=== PATIENT | male | born 1965 | race Caucasian/White ===

== ENCOUNTER → 2016-09-29 | Outpatient (CLI) | payer BC ==
[~2016-09-29] MED LIST: NXM/40 PO
[2016-09-29 10:39] LABS: BASO % 1.5 %; BASO ABS # 0.06 K/uL (0-0.2); COMPLETE YES; EOS % 1.5 %; HEMATOCRIT 44.1 % (42-52); LYMPH % 38.7 %; MEAN CELL VOLUME 89.5 fL (80-100); MEAN CORPUSCULAR HEMOGLOBIN 30.8 pg (25-34); MEAN CORPUSCULAR HGB CONC 34.5 g/dl (32-36); MEAN PLATELET VOLUME 9.9 fL (7.4-10.4); MONO % 9.7 %; NEUT % 48.6 %; PLATELET COUNT 242 K/uL (130-400); RED BLOOD COUNT 4.93 M/uL (4.7-6.1); WHITE BLOOD COUNT 4.13 K/uL (4.8-10.8)
[2016-09-29 10:59] LABS: ALT/SGPT 40 U/L (12-78); AST/SGOT 25 U/L (15-37); BLOOD UREA NITROGEN 11 mg/dl (7-18); BUN/CREATININE RATIO 10.5 (10-20); CALCIUM 9.6 mg/dl (8.5-10.1); CARBON DIOXIDE 27 mmol/L (21-32); CHLORIDE 106 mmol/L (98-107); CHOLESTEROL 257 mg/dl (0-200); GLUCOSE 97 mg/dl (70-99); POTASSIUM 3.9 mmol/L (3.5-5.1); SODIUM 138 mmol/L (136-145); TRIGLYCERIDES 137 mg/dl (0-150); VERY LOW DENSITY LIPOPROT CALC 27 mg/dl
[2016-09-29 11:02] LABS: CHOLESTEROL/HDL RATIO 4.7; HDL CHOLESTEROL 55 mg/dl; LDL CHOLESTEROL CALCULATED 175 mg/dl
== END | disposition home or self-care (01) ==
LOC: C.LAB1850 09:15
DX: E78.5 Hyperlipidemia, unspecified (principal); N52.9 Male erectile dysfunction, unspecified; R51 Headache

== ENCOUNTER 2018-08-30 07:32 | Observation (INO) ==
--- NOTE | 2018-08-27 09:00 | PAT Medication Instructions ---
Medication Instructions Date of Service August 27, 2018 Home Medications esomeprazole magnesium [Nexium] 20 mg PO DAILY PRN ibuprofen [Advil] 600 mg PO QID PRN ASK your surgeon for instructions ibuprofen [Advil] 600 mg PO QID PRN Take morning of surgery With a small sip of water, OTHERWISE NOTHING TO EAT OR DRINK AFTER MIDNIGHT: esomeprazole magnesium [Nexium] 20 mg PO DAILY PRN (if needed) Other Notes If you have any questions please call us at [phone] or [phone] or [phone] or [phone]
--- NOTE | 2018-08-27 09:21 | Anesthesiology Consultation ---
Date of Service August 27, 2018 Assessment & Plan (1) Encounter for pre-operative examination: - No previous anesthesia records available. Chart Review Chart Review: Acceptable Risk for Surgery and Patient seen in Pre Admission Test ing Consults Requested none Teaching & Discussion Pre-Anesthesia Teaching/Discussion Notes: Instructed NPO after midnight before surgery, except medications with 15 cc of water. Medication instructions provided according to the PAT guidelines. History Surgery Operation Date: 08/30/18 08:30 Proposed Procedures p Laparoscopic Cholecystectomy with Cholangiogram - Alfonso Adams MD, FACS Height/Weight Height: 5 ft 6 in Weight: 78.8 kg Allergies Allergy/AdvReac Type Severity Reaction Status Date / Time No Known Allergies Allergy Verified 08/25/18 14:00 Medications Home Medications Medication Instructions Recorded Confirmed Last Taken esomeprazole magnesium [Nexium] 20 mg PO DAILY PRN 08/25/18 08/25/18 Unknown ibuprofen [Advil] 600 mg PO QID PRN 08/25/18 08/25/18 Unknown Past Medical History Medical History Acid reflux Migraine HX Exercise / Class Metabolic Activity II 4-5 Yardwork/Stairs/Walk up hill (Golf, Walks alot, Able to climb FOS, denies CP or SOB.) Past Surgical History Surgical History H/O knee surgery RIGHT ACL RECON History of esophagogastroduodenoscopy (EGD) History of herniorrhaphy Bilateral inguinal Past Anesthesia History No Hx of Anesthesia Complications and No Family Hx of Anesthesia Complications History of PONV No Hx of PONV and No Hx of Motion Sickness Social History Smoking Status: Never smoker Do You Dip or Chew Tobacco: No Hx Alcohol Use: Yes Alcohol type: beer, wine and hard liquor alcohol intake frequency: a few times a week Hx Substance Use: No Review of Systems Patient denies chest pain, shortness of breath, dyspnea on exertion,cough, wheezing, palpitations. +Joint Pain (Knee) +Acid Reflux (Controlled with occasional Nexium) Physical Exam Vital Signs BP: 132/86 P: 73 R: 16 T: 98.1 SPO2: 97% on Ra ENMT Thyromental Distance: < 3.5 Finger Breadths (3) Mallampati Class: I Neck normal visual inspection and trachea midline; neck extension not limited Respiratory normal respiratory effort Auscultation: lungs clear to auscultation bilaterally Cardiovascular Rate/Rhythm: regular rate and regular rhythm Heart Sounds: no murmur Neurologic moves all extremities Psychiatric Orientation: alert and oriented x 3 Testing Laboratory Results Laboratory Tests 07/22/18 07/22/18 08:20 08:20 WBC 4.86 Hgb 15.4 Hct 44.4 Plt Count 216 Sodium 142 Potassium 4.1 Chloride 110 H Carbon Dioxide 25 BUN 16 Creatinine 1.03 Glucose 83 Urine from 07/22 is NEGATIVE Electrocardiogram Date: 08/27/18 Findings: + NSR @ (70) and + no change from (09/25/11)
[~2018-08-30 07:32] MED LIST changes: +DEXAMETHASONE SOD INJ 4 MG/ML VIAL ONE; +GLYCOPYRROLATE 0.2 MG/ML VIAL ONE; +LIDOCAINE HCL 2% 2 ML VIAL/AMP(20MG/ML) INFIL ONE; +LR 15ML/HR IV SCH; +MIDAZOLAM HCL 1 MG/ML 2ML VIAL ONE; +NEOSTIGMINE METHYLSULFATE 5 MG/5 ML SYR ONE; -NXM/40 PO; +ONDANSETRON INJ 2 MG/ML 2 ML VIAL ONE; +PROPOFOL IV EMULSION 10 MG/ML 20 ML VIAL IV ONE; +cefUROXime 1,500 MG in DEXTROSE 5% 100 ML IV SCH; +fentaNYL citrate 100 MCG/2 ML VIAL ONE
--- NOTE | 2018-08-30 08:28 | History & Physical Bridge Note ---
Date of Service August 30, 2018 History & Physical Bridge Note I have examined the patient, reviewed the History & Physical and in the interval since the performance of the History & Physical I have noted the following changes of clinical significance: no changes noted
[2018-08-30] MEDS ORDERED: ePHEDrine sulfate 50 MG/ML AMP IV PRN (08:29)
[2018-08-30] MEDS ORDERED: PROMETHAZINE HCL 12.5 MG in SODIUM CHLORIDE 0.9% 50 ML IV PRN ×2 (08:29→10:16)
[2018-08-30] MEDS ORDERED: ATROPINE SULFATE 0.1 MG/ML 10ML SYR IV PRN (08:29)
[2018-08-30] MEDS ORDERED: ONDANSETRON INJ 2 MG/ML 2 ML VIAL IV PRN ×2 (08:29→10:16)
[2018-08-30] MEDS ORDERED: HYDROmorphone INJ 1 MG/ML SYRINGE IV PRN ×2 (08:29→10:16)
[2018-08-30] MEDS ORDERED: CONRAY 60% 50 ML VIAL ONE (08:47)
[2018-08-30] MEDS ORDERED: BUPIVACAINE 0.5 % 5 MG/1 ML MPF 30ML VIAL ONE (08:47)
[2018-08-30] MEDS ORDERED: fentaNYL citrate 100 MCG/2 ML VIAL ONE (09:14)
[2018-08-30] MEDS ORDERED: ROCURONIUM BROMIDE 10 MG/ML 5 ML VIAL ONE (09:19)
[2018-08-30] MEDS ORDERED: HYDROmorphone INJ 0.5 MG/0.5 ML SYR IV PRN (10:16)
[2018-08-30] MEDS ORDERED: IBUPROFEN 600 MG TAB PO PRN (10:16)
[2018-08-30] MEDS ORDERED: PROMETHAZINE HCL 25 MG in SODIUM CHLORIDE 0.9% 50 ML IV PRN (10:16)
[2018-08-30] MEDS ORDERED: ACETAMINOPHEN 1,000 MG/100 ML VIAL IV ONE (10:16)
[2018-08-30] MEDS ORDERED: HYDROCODONE/ACETAMOPHEN 5/325MG TAB PO PRN (10:16)
--- NOTE | 2018-08-30 10:16 | Operative Report ---
Post Operative Report Pre & Post Diagnosis Operation Date: 08/30/18 08:30 Pre-Op Diagnosis: Biliary Colic Post-Op Diagnosis: Chronic cholecystitis adhesions Procedure Operation Date: 08/30/18 08:30 Actual Procedures p Laparoscopic Cholecystectomy (Not Applicable) - Alfonso Adams MD, FACS Surgeon Alfonso Adams MD, FACS Cosmetic Chemist nurses Estimated Blood Loss 10 Findings Consistent with Post-Op Diagnosis Specimens gallbladder Description of Procedure see dictation I attest to the content of the Intraoperative Record and any orders documented therein. Any exceptions are noted below.
[2018-08-30] MEDS ORDERED: ACETAMINOPHEN 1000 MG/100 ML IV IV ONE (10:26)
[2018-08-30] MEDS ORDERED: SODIUM CHLORIDE 0.9% 1000ML 1,000 ML IV SCH (10:30)
[2018-08-30] MEDS: fentaNYL citrate 100 MCG/2 ML VIAL IV PRN ×2 (10:47→10:53)
--- NOTE | 2018-08-30 11:13 | Operative Report ---
DATE OF OPERATION: 08/30/2018 NAME OF OPERATION: Laparoscopic cholecystectomy with lysis of adhesions to the colon and omentum. STAFF SURGEON: Alfonso Adams MD ANESTHESIA: General. DESCRIPTION OF PROCEDURE: The patient was brought in the operating room and placed on the operating table in supine position. His abdomen was prepped and draped in usual fashion. Pneumatic stockings, orogastric tube were placed. 0.5% plain Marcaine was used to anesthetize all incisions. Incision was made above the umbilicus, carrying dissection down to the fascia, placing a Veress needle producing pneumoperitoneum. An 11 mm port was placed this level. Then, under visualization, three 5 mm ports were placed, 1 cephalad and 2 laterally. Gallbladder was grasped and retracted. There were relatively dense adhesions of the colon and omentum to the gallbladder. These were taken down with some difficulty, the dissection was carried out the faisal hepatis, identifying severe scar tissue consistent with chronic cholecystitis. I was able to identify the cystic duct. I was unable to pass the catheter to perform cholangiogram. The duct was clipped and transected. The cystic artery identified, clipped and transected and the gallbladder dissected away from the liver bed in the usual fashion, placed in an Endobag. After appropriate hemostasis and irrigation, the Endobag was removed through the umbilical site. All ports were removed. The fascia at the umbilicus closed using interrupted 0 Vicryl suture. Skin at the umbilicus closed using interrupted 5-0 Prolene suture and then the other sites closed using subcuticular 4-0 Monocryl with Steri-Strips. The patient was transferred to the recovery room in stable condition. I attest to the content of the Intraoperative Record and any orders documented therein. Any exception s are noted below.
--- NOTE | 2018-08-30 11:18 | Anesthesiology Progress Note ---
Date of Service August 30, 2018 Anesthesia Post Procedure Vital Signs Vital Signs: Temp Pulse Resp BP Pulse Ox 08/30/18 11:05 36.3 C L 60 15 115/76 96 08/30/18 10:55 60 15 107/78 96 08/30/18 10:45 61 17 132/89 97 08/30/18 10:35 62 18 140/90 100 08/30/18 10:25 36.3 C L 69 18 142/95 H 100 08/30/18 07:51 36.8 C 65 18 134/90 98 Pain Intensity Abdomen: Pain Intensity: 0 Transfer of Care Handoff Completed per policy Notes Mental Status: alert / awake / arousable and participated in evaluation Patient Amnestic to Procedure: Yes Nausea / Vomiting: adequately controlled Pain: adequately controlled Airway Patency, RR, SpO2: stable & adequate BP & HR: stable & adequate Hydration State: stable & adequate Anesthetic Complications: no major complications apparent and Pt Satisfied with anesthetic care
[2018-08-30] MEDS: HYDROCODONE/ACETAMOPHEN 5/325MG TAB PO PRN ×2 (15:23→21:57)
[2018-08-30] MEDS: DOCUSATE SODIUM/SENNA 50/8.6MG TAB PO SCH (20:38)
[2018-08-31 05:41] LABS: Basophils # (auto) 0.01 K/uL (0-0.2); Basophils % (auto) 0.1 %; Hematocrit (blood only) 40.7 % (42-52); Immature Granulocytes # (auto) 0.03 K/uL (0.00-0.02); Immature Granulocytes % (auto) 0.3 %; Lymphocytes # (auto) 1.48 K/uL (1.2-3.4); Lymphocytes % (auto) 12.6 %; Mean Corpuscular Hgb Conc 34.4 g/dL (32-36); Mean Corpuscular Volume 89.6 fL (80-100); Mean Platelet Volume 9.8 fL (7.4-10.4); Monocytes # (auto) 0.98 K/uL (0.11-0.59); Monocytes % (auto) 8.4 %; Neutrophils # (auto) 9.22 K/uL (1.4-6.5); Neutrophils % (auto) 78.6 %; Platelet Count 191 K/uL (130-400); RDW Standard Deviation 42.6 fL (36.4-46.3); Red Blood Count 4.54 M/uL (4.7-6.1); White Blood Count 11.72 K/uL (4.8-10.8)
[2018-08-31 06:18] LABS: Alanine Aminotransferase 38 U/L (12-78); Albumin Level 3.3 gm/dl (3.4-5.0); Aspartate Aminotransferase 23 U/L (15-37); BUN Creatinine Ratio 14.3 (10-20); Bilirubin Direct < 0.1 mg/dl (0-0.2); Blood Urea Nitrogen 14 mg/dl (7-18); Calcium 8.1 mg/dl (8.5-10.1); Carbon Dioxide 25 mmol/L (21-32); Chloride 108 mmol/L (98-107); Creatinine Clr Calc Pharmacy 86.8 ml/min; Est GFR (African American) 101.3; Est GFR (Non-African American) 87.4; Glucose 146 mg/dl (70-99); Sodium 140 mmol/L (136-145)
[2018-08-31 06:21] LABS: Alkaline Phosphatase 40 U/L (45-117); Bilirubin,Total 0.5 mg/dl (0.2-1); Globulin 3.4 gm/dl (2.5-4.0); Total Protein 6.7 gm/dl (6.4-8.2)
--- NOTE | 2018-08-31 07:18 | Discharge Summary ---
PRINCIPAL DIAGNOSIS: Chronic cholecystitis. PROCEDURES: The patient underwent laparoscopic cholecystectomy with lysis of adhesions. STAFF SURGEON: Alfonso Adams MD HISTORY OF PRESENT ILLNESS AND HOSPITAL COURSE: The patient is a 52-year-old male who had been having symptoms of what appeared to be biliary colic, was brought into the hospital for elective cholecystectomy. Surprisingly, he had very dense adhesions of the colon and omentum to the gallbladder consistent with chronic cholecystitis. He did tolerate the laparoscopic cholecystectomy well and has done well overnight and is felt stable for discharge home today to be followed in the surgical clinic next week.
--- NOTE | 2018-08-31 08:00 | Anesthesiology Progress Note ---
Date of Service August 31, 2018 Anesthesia Post Procedure Vital Signs Vital Signs: Temp Pulse Resp BP Pulse Ox 08/31/18 07:46 36.5 C 71 16 128/85 97 08/31/18 07:00 36.5 C 71 16 128/85 97 08/31/18 03:25 36.5 C 60 16 109/69 97 08/30/18 23:00 36.6 C 81 16 107/66 96 08/30/18 19:35 36.5 C 81 16 129/81 96 08/30/18 14:22 70 15 131/82 98 08/30/18 13:17 78 15 127/74 97 08/30/18 12:20 57 L 15 114/72 98 08/30/18 11:46 36.4 C L 57 L 18 124/75 98 08/30/18 11:20 36.4 C L 58 L 14 114/72 98 08/30/18 11:05 36.3 C L 60 15 115/76 96 08/30/18 10:55 60 15 107/78 96 08/30/18 10:45 61 17 132/89 97 08/30/18 10:35 62 18 140/90 100 08/30/18 10:25 36.3 C L 69 18 142/95 H 100 Pain Intensity Abdomen: Pain Intensity: 3 Notes Mental Status: alert / awake / arousable and participated in evaluation Patient Amnestic to Procedure: Yes Nausea / Vomiting: adequately controlled Pain: adequately controlled Airway Patency, RR, SpO2: stable & adequate BP & HR: stable & adequate Hydration State: stable & adequate Anesthetic Complications: no major complications apparent and Pt Satisfied with anesthetic care
[2018-08-31] MEDS ORDERED: CIPROFLOXACIN 500 MG TAB PO SCH (09:00)
[2018-08-31] MEDS: DOCUSATE SODIUM/SENNA 50/8.6MG TAB PO SCH (09:08)
== END 2018-08-31 09:35 | disposition home or self-care (01) ==
LOC: 3N 07:32 → ASU 07:32

== ENCOUNTER 2019-04-08 09:55 | Observation (INO) ==
[2019-04-08 10:46] LABS: Basophils # (auto) 0.03 K/uL (0-0.2); Basophils % (auto) 0.3 %; Eosinophils # (auto) 0.07 K/uL (0-0.5); Eosinophils % (auto) 0.7 %; Hematocrit (blood only) 42.2 % (42-52); Hemoglobin 14.3 g/dL (14.0-18.0); Immature Granulocytes # (auto) 0.01 K/uL (0.00-0.02); Immature Granulocytes % (auto) 0.1 %; Lymphocytes # (auto) 1.43 K/uL (1.2-3.4); Lymphocytes % (auto) 14.4 %; Mean Corpuscular Hemoglobin 31.4 pg (25-34); Mean Corpuscular Hgb Conc 33.9 g/dL (32-36); Mean Corpuscular Volume 92.5 fL (80-100); Mean Platelet Volume 9.9 fL (7.4-10.4); Monocytes # (auto) 0.91 K/uL (0.11-0.59); Monocytes % (auto) 9.1 %; Neutrophils # (auto) 7.51 K/uL (1.4-6.5); Neutrophils % (auto) 75.4 %; Platelet Count 215 K/uL (130-400); RDW Coefficient of Variation 13.5 % (11.5-14.5); RDW Standard Deviation 45.6 fL (36.4-46.3); Red Blood Count 4.56 M/uL (4.7-6.1); White Blood Count 9.96 K/uL (4.8-10.8)
[2019-04-08 11:16] LABS: Alanine Aminotransferase 23 U/L (12-78); Albumin Level 3.9 gm/dl (3.4-5.0); Aspartate Aminotransferase 14 U/L (15-37); BUN Creatinine Ratio 9.5 (10-20); Blood Urea Nitrogen 10 mg/dl (7-18); Calcium 9.3 mg/dl (8.5-10.1); Carbon Dioxide 26 mmol/L (21-32); Chloride 107 mmol/L (98-107); Est GFR (African American) 91.6; Glucose 96 mg/dl (70-99); Potassium 3.9 mmol/L (3.5-5.1); Sodium 138 mmol/L (136-145)
[2019-04-08 11:19] LABS: Albumin Globulin Ratio 0.8 (0.9-2); Alkaline Phosphatase 62 U/L (45-117); Bilirubin,Total 1.4 mg/dl (0.2-1); Globulin 4.8 gm/dl (2.5-4.0); Total Protein 8.7 gm/dl (6.4-8.2)
--- NOTE | 2019-04-08 12:01 | Emergency Department Note ---
History of Present Illness General Chief complaint: Skin Problem Stated complaint: PERIANAL /PERIRECTAL ABSCESS Time Seen by Provider: 04/08/19 11:37 History of Present Illness Maximum Pain Intensity: 8 Patient is a 53-year-old male who presents the emergency department accompanied by his fiance for evaluation of a perirectal abscess that he was diagnosed with 2 days ago. Patient relates that he traveled to [place] 8 days ago. He had had some minor rectal discomfort prior to leaving, stating that he could feel a small lump in the area, but it was not particularly problematic. His symptoms worsened while he was away. 48 hours ago he was seen in an emergency department in [place]. He had a CT scan which diagnosed a perirectal abscess. He received IV Zosyn in the emergency department. Surgery was consulted and wanted to proceed with I&D however the patient declined this as he did not want to have surgery while he was away from home. They placed the patient on Augmentin and he returned here. He continues to note increasing right rectal pain radiating into the buttock. He feels fatigued, has been hot and had chills but has not taken his temperature. He is able to move his bowels. He denies any prior history of symptoms similar to this. He has not been taking anything for pain which he currently rates an 8/10. Home Medications Home Medications Medication Instructions Recorded Confirmed Type esomeprazole magnesium [Nexium] 20 mg PO DAILY PRN 08/25/18 04/08/19 History ibuprofen [Advil] 600 mg PO QID PRN 08/25/18 04/08/19 History multivitamin 1 tab PO DAILY 09/14/18 04/08/19 History omega-3 fatty acids 1,000 mg 1,000 mg PO DAILY 09/14/18 04/08/19 History capsule diclofenac potassium 50 mg tablet 50 mg PO PRN #60 tab 09/16/18 04/08/19 History naratriptan 2.5 mg tablet 2.5 mg PO .COMPLEX PRN 30 Days #9 03/15/19 04/08/19 Rx tab Allergies Allergy/AdvReac Type Severity Reaction Status Date / Time No Known Allergies Allergy Verified 04/08/19 11:30 Past Med/Surg History Medical History Acid reflux (Chronic) Migraine (Chronic) HX Surgical History H/O knee surgery RIGHT ACL RECON History of esophagogastroduodenoscopy (EGD) History of herniorrhaphy Bilateral inguinal S/P laparoscopic cholecystectomy (08/30/18) Laparoscopic cholecystectomy with lysis of adhesions to the colon and omentum 08/30/18 Dr. Adams. 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 Current Living Situation: Significant Other Feels Safe at Home: Yes Smoking Status: Never smoker Second Hand Exposure: No ; Hx Alcohol Use: Yes Alcohol type: beer, wine and hard liquor Hx Substance Use: No Review of Systems A total of 10 systems reviewed and were otherwise negative Physical Exam Vital Signs Vital Signs - 24 hr 04/08/19 10:04 Temperature 36.7 C Temperature Source Oral Pulse Rate 100 H Respiratory Rate 20 Blood Pressure 142/97 H Blood Pressure Mean 112 Pulse Oximetry 99 Oxygen Delivery Method Room Air Sepsis Recent Fever Within 48 Hours No Sepsis New/Unexplained Change in Mental Status No Sepsis Action Taken by Nursing No Action Required CONSTITUTIONAL: Patient is an uncomfortable appearing 53-year-old male who is awake and alert and ambulatory in the exam room. HEENT: Normocephalic, atraumatic. Pupils equal, round, reactive to light and accommodation. EOMs intact without nystagmus. Sclera are anicteric. Tympanic membranes intact, with normal landmarks. External canals are clear. Oral and nasopharynx are clear. Mucous membranes are moist. CARDIOVASCULAR: Regular rate and rhythm, with normal S1 and S2, no murmur or gallop or rub is heard. No carotid bruits auscultated. No JVD. Peripheral pulses easily palpable. RESPIRATORY: Breath sounds equal and clear to auscultation without wheezes, rales, or rhonchi heard. Full and equal chest expansion without accessory muscle use or retractions. ABDOMEN: Well-healed surgical scars are noted. Abdomen is soft, nontender, mildly tender in the suprapubic region without guarding or rebound. Digital rectal exam was not performed due to the stated complaint. INTEGUMENTARY: Examination of the rectal/buttock area note marked erythema, increased warmth and induration in the right perirectal area extending onto the buttock. It is significantly tender to palpation without obvious fluctuance. No pointing. INTEGUMENTARY: No lesions or rash, normal skin turgor. LYMPH: No lymphadenopathy. Course Course The patient was seen and assessed as above. He presents to the emergency department for evaluation of rectal and buttock pain after being diagnosed with a perirectal/perianal abscess 48 hours ago while traveling in [place]. He has had persistent symptoms. IV lock was initiated. Laboratory studies were collected. Patient was made n.p.o. CBC with differential, CMP were ordered. CT scan of the abdomen and pelvis with IV contrast was obtained. The patient was medicated with morphine 6 mg and Zofran 4 mg IV for discomfort and given Zosyn 4.5 mg IV. Laboratory studies noted a normal white count at 9900, left shift noted without bandemia. Electrolytes and renal functions are normal. No significant abnormalities regarding transaminases. CT scan of the pelvis with IV contrast confirmed a 3.8 x 2.8 x 2 cm perianal abscess with associated inflammation. No other acute findings noted. Laboratory and diagnostic imaging studies were reviewed with the patient and discussed with attending physician. The patient was feeling improved with the IV morphine. General surgery was consulted. Patient was discussed with Alicia Santana PA-C. He was evaluated in the emergency department by the surgical team and they will plan to take him to the OR this afternoon for definitive care. Please refer to surgical consult for more information. Administered Medications Ioversol (Optiray 320 100ml) 94 ml IV ONCE PRN PRN Reason: Interaction Checking Stop: 04/12/19 12:06 Last Admin: 04/08/19 12:08 Dose: 94 ml Documented by: [id number] Morphine Sulfate (Morphine Sulfate) 4 mg IV Q1H PRN PRN Reason: Pain Stop: 04/22/19 12:04 Last Admin: 04/08/19 13:59 Dose: 4 mg Documented by: [id number] Discontinued Medications Piperacillin Sod/Tazobactam Sod (Zosyn) 4.5 gm in 120 mls @ 240 mls/hr IV NOW ONE Stop: 04/08/19 12:34 Last Infusion: 04/08/19 12:55 Dose: 0 mls/hr Documented by: [id number] Admin: 04/08/19 12:21 Dose: 240 mls/hr Documented by: [id number] Morphine Sulfate (Morphine Sulfate) 6 mg IV NOW STA Stop: 04/08/19 12:06 Last Admin: 04/08/19 12:21 Dose: 6 mg Documented by: [id number] Ondansetron HCl (Zofran) 4 mg IV NOW STA Stop: 04/08/19 12:06 Last Admin: 04/08/19 12:21 Dose: 4 mg Documented by: [id number] Medical Decision Making Differential Diagnosis Differential diagnoses entertained included perirectal versus perianal abscess, fistula, rectal fissure, cellulitis, hemorrhoid, mass or malignancy, fecal impaction, among others. Medical Records Attestation: I reviewed the patient's medical records. Home Medications Current Medication List: was personally reviewed by me Laboratory Data Attestation: I reviewed the patient's lab results. Result diagrams: 04/08/19 10:35 04/08/19 10:35 Lab Results 04/08/19 04/08/19 Range/Units 10:35 10:35 WBC 9.96 (4.8-10.8) K/uL RBC 4.56 L (4.7-6.1) M/uL Hgb 14.3 (14.0-18.0) g/dL Hct 42.2 (42-52) % MCV 92.5 (80-100) fL MCH 31.4 (25-34) pg MCHC 33.9 (32-36) g/dL RDW Std Deviation 45.6 (36.4-46.3) fL RDW Coeff of [place] 13.5 (11.5-14.5) % Plt Count 215 (130-400) K/uL MPV 9.9 (7.4-10.4) fL Immature Gran % (Auto) 0.1 % Neut % (Auto) 75.4 % Lymph % (Auto) 14.4 % [place] % (Auto) 9.1 % Eos % (Auto) 0.7 % Baso % (Auto) 0.3 % Immature Gran # (Auto) 0.01 (0.00-0.02) K/uL Neut # (Auto) 7.51 H (1.4-6.5) K/uL Lymph # (Auto) 1.43 (1.2-3.4) K/uL [place] # (Auto) 0.91 H (0.11-0.59) K/uL Eos # (Auto) 0.07 (0-0.5) K/uL Baso # (Auto) 0.03 (0-0.2) K/uL Sodium 138 (136-145) mmol/L Potassium 3.9 (3.5-5.1) mmol/L Chloride 107 (98-107) mmol/L Carbon Dioxide 26 (21-32) mmol/L Anion Gap 5.0 (3-11) BUN 10 (7-18) mg/dl Creatinine 1.08 (0.6-1.4) mg/dl Est Cr Clr Drug Dosing Not Reportable Est GFR ( Amer) 91.6 Est GFR (Non-Af Amer) 79.0 BUN/Creatinine Ratio 9.5 L (10-20) Glucose 96 (70-99) mg/dl Calcium 9.3 (8.5-10.1) mg/dl Total Bilirubin 1.4 H (0.2-1) mg/dl AST 14 L (15-37) U/L ALT 23 (12-78) U/L Alkaline Phosphatase 62 (45-117) U/L Total Protein 8.7 H (6.4-8.2) gm/dl Albumin 3.9 (3.4-5.0) gm/dl Globulin 4.8 H (2.5-4.0) gm/dl Albumin/Globulin Ratio 0.8 L (0.9-2) Imaging Data Attestation: I personally reviewed and interpreted this imaging study as follows: Radiologist's Impression: CT pelvis w/IV con only CLINICAL HISTORY: Evaluate perirectal abscess. COMPARISON STUDY: CT of the abdomen and pelvis May 12, 2006. TECHNIQUE: Axial images of the pelvis were obtained following intravenous inje ction of 94 cc Optiray 320 IV. Sagittal and coronal reconstructions were viewed. Automated exposure control was utilized for the study. A dose lowering technique was utilized adhering to the principles of ALARA. FINDINGS: Note is made of a 3.8 x 2.8 x 2 cm rim-enhancing right perianal fluid collection within the ischioanal fossa located at the 8:00 position. This extends toward the medial inferior wall of the right buttock. Moderate adjacent inflammation is noted. No additional fluid collections are present. Sensitivity for detection of underlying fistula is suboptimal given CT technique. Caliber and wall thickness of visualized small and large bowel are normal. There is no pelvic lymphadenopathy. There is no soft tissue gas. IMPRESSION: 3.8 x 2.8 x 2 cm right perianal abscess within the ischioanal fossa with moderate associated inflammation. Blood Pressure Blood Pressure Findings: Elevated blood pressure Blood Pressure Disposition: elevated BP felt to be situational MDM Narrative See ED Course. Impression & Plan Perianal abscess Discharge Plan Visit Data Chief Complaint: Skin Problem Stated Complaint: PERIANAL /PERIRECTAL ABSCESS ED Provider: Vanda Reyes ED Midlevel Provider: Carson Delarosa Discharge Problem: Perianal abscess Patient Disposition: Being Evaluated by Surgeon Forms Stand Alone Forms: [facility] [employer] Prescriptions Prescriptions: No Action diclofenac potassium 50 mg tablet 50 mg PO PRN Qty: 60 RF: 0 naratriptan 2.5 mg tablet 2.5 mg PO .COMPLEX PRN (Reason: migraine headache) 30 Days Qty: 9 RF: 5 omega-3 fatty acids [Fish Oil Concentrate] 1,000 mg capsule 1,000 mg PO DAILY RF: 0 multivitamin [Multiple Vitamins] tablet 1 tab PO DAILY RF: 0 ibuprofen [Advil] 200 mg Tablet 600 mg PO QID PRN (Reason: Pain) RF: 0 esomeprazole magnesium [Nexium] 20 mg Capsule,Delayed Release(Dr/Ec) 20 mg PO DAILY PRN (Reason: Acid Reflux) RF: 0 Referrals Referrals: Alfonso Mohr Jr, DO [Primary Care Provider] -
[2019-04-08] MEDS ORDERED: MoRPHine SULFATE 4 MG/ML 1 ML CARP\\VIAL IV PRN (12:05)
[2019-04-08] MEDS ORDERED: PIPERACILLIN/TAZOBACTAM 4.5 GM/120 ML BAG IV ONE (12:05)
[2019-04-08] MEDS ORDERED: ONDANSETRON INJ 2 MG/ML 2 ML VIAL IV STA (12:05)
[2019-04-08] MEDS ORDERED: MoRPHine SULFATE 10 MG/ML CARP/VIAL IV STA (12:05)
[2019-04-08] MEDS ORDERED: PIPERACILL/TAZOBAC CONSULT ACTIVE PRN ×2 (12:05→17:46)
[2019-04-08] MEDS ORDERED: IOVERSOL 100ml IV PRN (12:07)
--- NOTE | 2019-04-08 12:22 | CT Scan Report ---
CT pelvis w/IV con only CLINICAL HISTORY: Evaluate perirectal abscess. COMPARISON STUDY: CT of the abdomen and pelvis May 12, 2006. TECHNIQUE: Axial images of the pelvis were obtained following intravenous injection of 94 cc Optiray 320 IV. Sagittal and coronal reconstructions were viewed. Automated exposure control was utilized for the study. A dose lowering technique was utilized adhering to the principles of ALARA. FINDINGS: Note is made of a 3.8 x 2.8 x 2 cm rim-enhancing right perianal fluid collection within the ischioanal fossa located at the 8:00 position. This extends toward the medial inferior wall of the r ight buttock. Moderate adjacent inflammation is noted. No additional fluid collections are present. S ensitivity for detection of underlying fistula is suboptimal given CT technique. Caliber and wall thi ckness of visualized small and large bowel are normal. There is no pelvic lymphadenopathy. There is no soft tissue gas. IMPRESSION: 3.8 x 2.8 x 2 cm right perianal abscess within the ischioanal fossa with moderate associ ated inflammation. ACT 112: Negative or not required by law. Electronically signed by: Hernando Mcknight M.D. 04/08/2019 12:20 PM
--- NOTE | 2019-04-08 13:51 | History & Physical Report ---
Date of Service April 08, 2019 Assessment & Plan (1) Perianal abscess: 53 year-old male with 8 day history of perianal pain. Had CT scan in [place] which showed perianal abscess and recommended to undergo incision and drainage at the time but deferred . Presents today with increasing pain. Some chills and sweats at home. Pain not well controlled. NO prior history of perianal/perirectal abscess. Recent colonoscopy Oct 2018 unremarkable. Examination shows moderate cellulitis of the right gluteus extending from the anus. Internal exam no palpable mass. Plan: Discussed with patient treatment for perianal abscess is incision and drainage. Discussed options of bedside I&D or under sedation in operating room. He does not want to do bedside as he is very uncomfortable. Discussed incision and drainage, placement of packing or possible drain depending on extent of abscess. Patient understood. Received IV Zosyn in ED Will admit under observation to med/surg, start iV fluids, keep npo, IV morphine prn pain until he is taken to OR for I&D. Dr. Holloway to obtain consent prior to OR Discussed with Dr. Holloway who agrees with above and who is to evaluate patient preoperatively. History of Present Illness Chief Complaint: Perianal abscess and pain Primary Care Provider: Alfonso Mohr Jr, DO Silva is a 53 year-old male who presented to emergency department with 8 day history of lalo-anal pain. States he traveled to [place] for work and was having some perianal pain before. Pain increased in severity and went to emergency department there in which surgery recommend drainage. He did not undergo procedure as he did not want to away from home. He just came back home late last night. Pain has been steadily increasing. Some chills and sweats at home but no documented fever. Has taken some Aleve for pain but without much relief. Was given Augmentin and has taken for 2 days. Never had any similar pain like this in the past. Recently had colonoscopy in October of 2018 which was unremarkable. No family history of crohn's disease, ulcerative colitis , or colon cancer. No recent issues with constipation or blood in stools or black/tarry stools. Allergies Allergy/AdvReac Type Severity Reaction Status Date / Time No Known Allergies Allergy Verified 04/08/19 11:30 Home Medications Home Medications Medication Instructions Recorded Confirmed Type esomeprazole magnesium [Nexium] 20 mg PO DAILY PRN 08/25/18 04/08/19 History ibuprofen [Advil] 600 mg PO QID PRN 08/25/18 04/08/19 History multivitamin 1 tab PO DAILY 09/14/18 04/08/19 History omega-3 fatty acids 1,000 mg 1,000 mg PO DAILY 09/14/18 04/08/19 History capsule diclofenac potassium 50 mg tablet 50 mg PO PRN #60 tab 09/16/18 04/08/19 History naratriptan 2.5 mg tablet 2.5 mg PO .COMPLEX PRN 30 Days #9 03/15/19 04/08/19 Rx tab Past Med/Surg History Medical History (Updated 04/08/19 @ 12:57 by Carson Delarosa) Acid reflux Migraine HX Migraine with aura and without status migrainosus, not intractable Surgical History H/O knee surgery RIGHT ACL RECON History of esophagogastroduodenoscopy (EGD) History of herniorrhaphy Bilateral inguinal S/P laparoscopic cholecystectomy (08/30/18) Laparoscopic cholecystectomy with lysis of adhesions to the colon and omentum 08/30/18 Dr. Adams. Social History Preferred Language: Chinese Communication Ability: Effective Entertainment Manager Required: No Current Living Situation: Significant Other Feels Safe at Home: Yes Smoking Status: Never smoker Second Hand Exposure: No ; Hx Alcohol Use: Yes Alcohol type: beer, wine and hard liquor Hx Substance Use: No Review of Systems Review of Systems: All systems reviewed & are unremarkable except as noted in HPI & below Physical Exam Constitutional: WD/WN, vitals as above no acute distress (uncomfortable, lying on side) and not ill appearing Respiratory: normal respiratory effort; no respiratory distress Gastrointestinal (Abdomen): Perianal /rectal examination: There is diffuse erythema and induration of the right buttock near the anus. There is area of fluctuance near anus but unable to completely palpate due to the cellulitis. Very tender on examination. Internal rectal exam with induration to right of anus but no palpable mass. No rectal bleeding on exam. No fistula inspected on exam. Skin: no rashes, warm and dry Psychiatric: A+Ox3, euthymic affect Results & Data Vital Signs (Past 12 Hours) Vital Signs Temp Pulse Resp BP Pulse Ox 04/08/19 10:04 36.7 C 100 H 20 142/97 H 99 Laboratory Results 04/08/19 04/08/19 Range/Units 10:35 10:35 WBC 9.96 (4.8-10.8) K/uL RBC 4.56 L (4.7-6.1) M/uL Hgb 14.3 (14.0-18.0) g/dL Hct 42.2 (42-52) % MCV 92.5 (80-100) fL MCH 31.4 (25-34) pg MCHC 33.9 (32-36) g/dL RDW Std Deviation 45.6 (36.4-46.3) fL RDW Coeff of Anderson 13.5 (11.5-14.5) % Plt Count 215 (130-400) K/uL MPV 9.9 (7.4-10.4) fL Immature Gran % (Auto) 0.1 % Neut % (Auto) 75.4 % Lymph % (Auto) 14.4 % Dupage % (Auto) 9.1 % Eos % (Auto) 0.7 % Baso % (Auto) 0.3 % Immature Gran # (Auto) 0.01 (0.00-0.02) K/uL Neut # (Auto) 7.51 H (1.4-6.5) K/uL Lymph # (Auto) 1.43 (1.2-3.4) K/uL Dupage # (Auto) 0.91 H (0.11-0.59) K/uL Eos # (Auto) 0.07 (0-0.5) K/uL Baso # (Auto) 0.03 (0-0.2) K/uL Sodium 138 (136-145) mmol/L Potassium 3.9 (3.5-5.1) mmol/L Chloride 107 (98-107) mmol/L Carbon Dioxide 26 (21-32) mmol/L Anion Gap 5.0 (3-11) BUN 10 (7-18) mg/dl Creatinine 1.08 (0.6-1.4) mg/dl Est Cr Clr Drug Dosing Not Reportable Est GFR ( Amer) 91.6 Est GFR (Non-Af Amer) 79.0 BUN/Creatinine Ratio 9.5 L (10-20) Glucose 96 (70-99) mg/dl Calcium 9.3 (8.5-10.1) mg/dl Total Bilirubin 1.4 H (0.2-1) mg/dl AST 14 L (15-37) U/L ALT 23 (12-78) U/L Alkaline Phosphatase 62 (45-117) U/L Total Protein 8.7 H (6.4-8.2) gm/dl Albumin 3.9 (3.4-5.0) gm/dl Globulin 4.8 H (2.5-4.0) gm/dl Albumin/Globulin Ratio 0.8 L (0.9-2) Code Status & VTE Plan VTE Prophylaxis Plan VTE Prophylaxis will be ordered: Yes
[2019-04-08] MEDS ORDERED: MIDAZOLAM HCL 1 MG/ML 2ML VIAL ONE (16:04)
[2019-04-08] MEDS ORDERED: fentaNYL citrate 100 MCG/2 ML VIAL ONE (16:11)
[2019-04-08] MEDS ORDERED: ePHEDrine sulfate 50 MG/ML AMP IV PRN (16:28)
[2019-04-08] MEDS ORDERED: ATROPINE SULFATE 0.1 MG/ML 10ML SYR IV PRN (16:28)
[2019-04-08] MEDS ORDERED: fentaNYL citrate 100 MCG/2 ML VIAL IV PRN (16:28)
[2019-04-08] MEDS ORDERED: ONDANSETRON INJ 2 MG/ML 2 ML VIAL IV PRN ×2 (16:28→17:46)
--- NOTE | 2019-04-08 16:28 | Anesthesiology Consultation ---
Date of Service April 08, 2019 Assessment & Plan (1) Encounter for pre-operative examination: Chart Review Chart Review: Acceptable Risk for Surgery and Patient NOT seen in Pre Admission Testing Consults Requested none ASA ASA2 Proposed Anesthesia Anesthesia Type: General Risk / Benefits Reviewed With: PT / POA / Parent / Guardian, Accepts Plan and Informed Consent Obtained History Surgery Operation Date: 04/08/19 09:20 Proposed Procedures p Incision and Drainage of Perianal Abscess - Steffen Holloway MD Height/Weight Height: 5 ft 6 in Weight: 78.5 kg Allergies Allergy/AdvReac Type Severity Reaction Status Date / Time No Known Allergies Allergy Verified 04/08/19 11:30 Medications Home Medications Medication Instructions Recorded Confirmed Last Taken esomeprazole magnesium [Nexium] 20 mg PO DAILY PRN 08/25/18 04/08/19 08/30/18 06:00 ibuprofen [Advil] 600 mg PO QID PRN 08/25/18 04/08/19 04/07/19 09:00 800 mg multivitamin 1 tab PO DAILY 09/14/18 04/08/19 Unknown omega-3 fatty acids 1,000 mg 1,000 mg PO DAILY 09/14/18 04/08/19 Unknown capsule diclofenac potassium 50 mg tablet 50 mg PO PRN #60 tab 09/16/18 04/08/19 Unknown naratriptan 2.5 mg tablet 2.5 mg PO .COMPLEX PRN 30 Days #9 03/15/19 04/08/19 Unknown tab Active Medications Generic Name Dose Route Start Last Admin Trade Name Freq PRN Reason Stop Dose Admin Ioversol 94 ml 04/08/19 12:07 04/08/19 12:08 Optiray 320 100ml IV 04/12/19 12:06 94 ml ONCE PRN Administration Interaction Checking Morphine Sulfate 4 mg 04/08/19 12:05 04/08/19 13:59 Morphine Sulfate IV 04/22/19 12:04 4 mg Q1H PRN Administration Pain NPO Date Last Intake of Fluids: 04/07/19 Time Last Intake of Fluids: 08:00 Last Intake of Fluids Comment: coffee w cream Date Last Intake of Solids: 04/07/19 Time Last Intake of Solids: 17:00 Past Medical History Medical History Acid reflux (Chronic) Migraine (Chronic) HX Exercise / Class Metabolic Activity II 4-5 Yardwork/Stairs/Walk up hill Past Family History Family History Mother ALS (amyotrophic lateral sclerosis) Father Cancer Myocardial infarction Uncle Cancer Myocardial infarction Grandfather Cancer Past Surgical History Surgical History H/O knee surgery RIGHT ACL RECON History of esophagogastroduodenoscopy (EGD) History of herniorrhaphy Bilateral inguinal S/P laparoscopic cholecystectomy (08/30/18) Laparoscopic cholecystectomy with lysis of adhesions to the colon and omentum 08/30/18 Dr. Adams. Past Anesthesia History No Hx of Anesthesia Complications and No Family Hx of Anesthesia Complications History of PONV No Hx of PONV and No Hx of Motion Sickness Social History Smoking Status: Never smoker Hx Alcohol Use: Yes Alcohol type: beer and wine alcohol intake frequency: a few times a week Hx Substance Use: No Physical Exam Vital Signs Last Vital Signs Temp 36.6 C 04/08/19 16:07 Pulse 89 04/08/19 16:07 Resp 18 04/08/19 16:07 BP 135/77 04/08/19 16:07 Pulse Ox 100 04/08/19 16:07 ENMT Mouth: no dentition abnormality Thyromental Distance: > or= 3.5 Finger Breadths Mallampati Class: II Neck normal visual inspection Respiratory normal respiratory effort Auscultation: lungs clear to auscultation bilaterally Cardiovascular Rate/Rhythm: regular rate and regular rhythm Psychiatric Orientation: alert Testing Laboratory Results 04/08/19 10:35 04/08/19 10:35
[2019-04-08] MEDS ORDERED: PROPOFOL IV EMULSION 10 MG/ML 20 ML VIAL IV ONE (16:42)
[2019-04-08] MEDS ORDERED: LIDOCAINE HCL 2% 2 ML VIAL/AMP(20MG/ML) INFIL ONE (16:42)
[2019-04-08] MEDS ORDERED: ONDANSETRON INJ 2 MG/ML 2 ML VIAL ONE (16:42)
--- NOTE | 2019-04-08 16:51 | Post Operative Brief Note ---
Immediate Post Op Note v1 Date of Surgery April 08, 2019 Pre & Post Diagnosis Operation Date: 04/08/19 09:20 Pre-Op Diagnosis: PERIANAL /PERIRECTAL ABSCESS Post-Op Diagnosis: PERIANAL /PERIRECTAL ABSCESS I identified the patient and participated in the time-out.: Yes Procedure Operation Date: 04/08/19 09:20 Actual Procedures p Incision and Drainage of Perianal Abscess(Right) - Steffen Holloway MD Surgeon Steffen Holloway MD Rn Discharge Alicia Santana PA-C Estimated Blood Loss 10 Findings Consistent with Post-Op Diagnosis
--- NOTE | 2019-04-08 17:16 | Anesthesiology Progress Note ---
Date of Service April 08, 2019 Anesthesia Post Procedure Vital Signs Vital Signs: Temp Pulse Pulse Pulse Resp BP BP 04/08/19 16:55 36.5 C 100 H 20 130/82 04/08/19 16:07 36.6 C 89 18 135/77 04/08/19 14:30 85 16 110/63 04/08/19 10:04 36.7 C 100 H 20 142/97 H Pulse Ox 04/08/19 16:55 100 04/08/19 16:07 100 04/08/19 14:30 96 04/08/19 10:04 99 Pain Intensity Rectal: Pain Intensity: 8 Transfer of Care Handoff Completed per policy Notes Mental Status: alert / awake / arousable Patient Amnestic to Procedure: Yes Nausea / Vomiting: adequately controlled Pain: adequately controlled Airway Patency, RR, SpO2: stable & adequate BP & HR: stable & adequate Hydration State: stable & adequate Anesthetic Complications: no major complications apparent
[2019-04-08] MEDS ORDERED: MoRPHine SULFATE 2 MG/ML CARP IV PRN ×2 (17:46)
[2019-04-08] MEDS: MoRPHine SULFATE 4 MG/ML 1 ML CARP\\VIAL IV PRN ×2 (18:47→23:20)
[2019-04-08] MEDS: LACTATED RINGER'S 1,000 ML IV SCH (18:53)
[2019-04-08] MEDS: PIPERACILLIN/TAZOBACTAM 3.375 GM in DEXTROSE 5% 100 ML IV SCH (20:13)
[2019-04-08] MEDS ORDERED: Nursing to Pharmacy Communication ONE (20:35)
[2019-04-08] MEDS: OXYCODONE/ACETAMINOPHEN 5mg/325mg TAB PO PRN (20:52)
[2019-04-08] MEDS ORDERED: POLYETHYLENE (MIRALAX) 17 GM PACK PO PRN (21:38)
[2019-04-08] MEDS: DOCUSATE SODIUM 100 MG CAP PO SCH (21:46)
[2019-04-08] MEDS: ACETAMINOPHEN 325 MG TAB PO PRN (21:46)
--- NOTE | 2019-04-08 23:11 | Operative Report ---
DATE OF OPERATION: 04/08/2019 PREOPERATIVE DIAGNOSIS: Large perirectal abscess. POSTOPERATIVE DIAGNOSIS: Large perirectal abscess. PROCEDURE PERFORMED: I and D of perirectal abscess. SURGEON: Steffen Holloway MD QUALITY CONTROL OPERATOR: Alicia Santana PA-C ANESTHESIA: General anesthesia. ESTIMATED BLOOD LOSS: 10 mL. COMPLICATIONS: None. DRAINS: None. INDICATION FOR PROCEDURE: This is a 53-year-old male with a perirectal abscess. He has had it for approximately a week. This has not drained. He continues to have pressure and pain. Was seen in the ED today where the abscess was noted. We will plan on draining this. He understands the risk of fistula, bleeding recurrence, and pain. DESCRIPTION OF PROCEDURE: The patient was placed in the lithotomy position after he underwent excellent general anesthesia. His perirectal area was prepped and draped in normal sterile fashion. There was a large abscess felt at about the 7 o'clock position. A 3/4-inch incision was made over the abscess. There was a large amount of purulent drainage which was expressed. Intraoperative cultures were taken. The abscess was then opened widely and irrigated with saline. A finger probe was used to make sure all loculations were opened up. There were no further cavities that were undrained. Once this was done, it was irrigated out one more time. Iodoform gauze was then used to pack the wound and a sterile dressing was applied. He tolerated the procedure well with no complications, sent to postop recovery area for a period of observation and be observed overnight. I attest to the content of the Intraoperative Record and any orders documented therein. Any exception s are noted below.
[2019-04-09] MEDS: MoRPHine SULFATE 4 MG/ML 1 ML CARP\\VIAL IV PRN ×2 (03:53→09:19)
[2019-04-09] MEDS: LACTATED RINGER'S 1,000 ML IV SCH (03:54)
[2019-04-09] MEDS: PIPERACILLIN/TAZOBACTAM 3.375 GM in DEXTROSE 5% 100 ML IV SCH (03:54)
[2019-04-09] MEDS: ACETAMINOPHEN 325 MG TAB PO PRN (04:26)
[2019-04-09] MEDS: DOCUSATE SODIUM 100 MG CAP PO SCH (07:40)
[2019-04-09] MEDS: OXYCODONE/ACETAMINOPHEN 5mg/325mg TAB PO PRN (08:03)
--- NOTE | 2019-04-09 09:17 | Surgery Progress Note ---
Date of Service April 09, 2019 Assessment & Plan (1) Perianal abscess: remove packing augmentin at home sitz baths will see in clinic in 2 days Subjective doing well Review of Systems Constitutional: no chills Cardiovascular: no chest pain Gastrointestinal: no abdominal pain, no nausea and no vomiting Physical Exam Constitutional: WD/WN, vitals as above Neck: trachea midline Respiratory: normal respiratory effort, lungs clear to auscultation Cardiovascular: RRR, no murmur, no edema Gastrointestinal (Abdomen): normal bowel sounds, soft, nontender, no hepatosplenomegaly Musculoskeletal: Head/Neck/Chest: normocephalic and head atraumatic Skin: perineum without cellulitis; packing in place Results & Data Vital Signs (Past 12 Hours) Vital Signs Temp Pulse Pulse Resp BP Pulse Ox 04/09/19 08:00 37 C 79 18 93/58 L 94 04/09/19 06:00 37.4 C 04/09/19 05:24 37.5 C 04/09/19 03:39 38.0 C H 94 H 16 98/62 L 94 04/08/19 23:35 38.9 C H 104 H 16 100/64 93 04/08/19 23:29 38.1 C H 04/08/19 22:38 38.7 C H 04/08/19 22:27 39.3 C H
--- NOTE | 2019-04-11 09:25 | Discharge Summary ---
Date of Service April 11, 2019 Admission HPI Per Admitting Provider Ricardo is a 53 year-old male who presented to emergency department with 8 day history of bettina-anal pain. States he traveled to [place] for work and was having some perianal pain before. Pain increased in severity and went to emergency department there in which surgery recommend drainage. He did not undergo procedure as he did not want to away from home. He just came back home late last night. Pain has been steadily increasing. Some chills and sweats at home but no documented fever. Has taken some Aleve for pain but without much relief. Was given Augmentin and has taken for 2 days. Never had any similar pain like this in the past. Recently had colonoscopy in October of 2018 which was unremarkable. No family history of crohn's disease, ulcerative colitis , or colon cancer. No recent issues with constipation or blood in stools or black/tarry stools. Principal Diagnosis Perianal abscess Discharge Data Allergies Allergy/AdvReac Type Severity Reaction Status Date / Time No Known Allergies Allergy Verified 04/08/19 11:30 Procedures Performed Operation Date: 04/08/19 09:20 Actual Procedures p Incision and Drainage of Perianal Abscess(Right) - Steffen Holloway MD Ordered Studies 02/ 11:38 CT pelvis w/IV con only Stat Hospital Course (1) Perianal abscess: Patient was admitted under observation from emergency department to med/surg floor prior to being taken to operating room for incision and drainage. Patient found to have right perianal abscess with significant purulence and cellulitis. Patient tolerated procedure well and was transferred back to med/surg floor postop. Diet was advanced as tolerated and pain control was as needed. Patient was doing well POD # 1, vitals stable. Pain controlled. Tolerating diet. Packing was removed and patient was discharged home on POD # 1 in stable condition to finish course of oral Augmentin. Total Time Total Time Spent Total Time Spent (In Minutes): 20 Total Time Includes: Examination of the Patient, Discharge Planning and Medication Reconciliation Discharge Plan Discharge Items Patient Disposition: Home - Self-Care Reason For Visit: PERIANAL ABSCESS WITH CELLULITIS Discharge Diagnosis: Perirectal abscess Activity: Per Instructions section Lifting: Gradually increase as tolerated Bathing: No limitations Sexual Activity: When tolerated Exercise/Sports: None Driving/Machine Use: Resume 1 day after discharge Non-emergency contact: Primary Care Provider and Surgeon Call non-emergency contact if: you have any medication questions, your pain is not controlled, your pain is worsening, your pain is concerning for you, you have a fever, your temperature is above 101, your wound has increased redness, your wound has increased drainage and your wound pain has increased Follow-up/Referrals: Alfonso Mohr Jr, DO [Primary Care Provider] - Diet: Regular Addtl Attending Provider Instructions: ACTIVITY RECOMMENDATIONS: * No heavy lifting for 1 week. * walking is encouraged on a daily basis MEDICATIONS: Resume previous medications unless instructed otherwise by your surgeon. * Percocet 5/325 mg 1 every 4 hours, as needed for pain * Colace 100 mg 2 times per day * Extra Strength Tylenol 500 - 1000 mg every 6 hours, as needed for pain * Ibuprofen 600 mg every 6 hours, as needed for pain * Continue course of Augmentin that was given to you in [place] for antibiotics SPECIAL CARE INSTRUCTIONS: * Remove dressings and change as needed to keep clean and dry. * Shower daily, allow soap and water to run over area and pat dry. * You can do sitz bath after bowel movement. * Call the surgeon's office with any questions or concerns - (ex. temperature higher than 101 degrees F, excessive bleeding or pain). FOLLOW UP VISIT: If not already scheduled, please call the office to schedule a one-two week follow-up appointment. Office number . Pending Studies at Discharge: Yes (culture results) Stand-Alone Forms: My [facility] Medications and DC Order Prescriptions: Continued diclofenac potassium 50 mg tablet 50 mg PO PRN Qty: 60 RF: 0 naratriptan 2.5 mg tablet 2.5 mg PO .COMPLEX PRN (Reason: migraine headache) 30 Days Qty: 9 RF: 5 omega-3 fatty acids [Fish Oil Concentrate] 1,000 mg capsule 1,000 mg PO DAILY RF: 0 multivitamin [Multiple Vitamins] tablet 1 tab PO DAILY RF: 0 ibuprofen [Advil] 200 mg Tablet 600 mg PO QID PRN (Reason: Pain) RF: 0 esomeprazole magnesium [Nexium] 20 mg Capsule,Delayed Release(Dr/Ec) 20 mg PO DAILY PRN (Reason: Acid Reflux) RF: 0 Discharge Orders: Discharge Order (Routine); Ordered 04/09/19 Ordered By: Steffen Reich/Other Patient Handouts: ED ABSCESS Bettina-Anal IandD Admission Data Admit Date/Time: 04/08/19 15:55 Attending Provider: Steffen Holloway Admit Provider: Steffen Holloway Primary Care Provider: Alfonso Mohr Jr Other Interventions: Discharge Summary Assessment (RN) Last Done: 04/09/19 09:31 DC Date/Time DO NOT enter until pt leaves facility: 04/09/19 10:47
== END 2019-04-09 10:47 | disposition home or self-care (01) ==
LOC: ED 09:55 → OR 15:54 → 3W 15:54